=== PATIENT | male | born 1950 | race Caucasian/White ===

== ENCOUNTER → 2020-10-15 | Outpatient (CLI) | payer OTHER ==
--- NOTE | 2020-10-15 17:47 | CARD ---
MR#: [id number] Date of Study: 10/15/2020 Ordering Physician: DARIO RODRIGUEZ, Referring Physician: DARIO RODRIGUEZ, Tech: Ashlee [place] [facility] APPROVED REPORT EXAM: Two-dimensional and M-mode echocardiogram with Doppler and color Doppler. Other Information Quality : AverageHR: 71bpm INDICATION Hypertension/HCVD RISK FACTORS Hyperlipidemia 2D DIMENSIONS RVDd2.8 (2.9-3.5cm)Left Atrium(2D)3.4 (1.6-4.0cm) IVSd1.0 (0.7-1.1cm)Aortic Root(2D)3.4 (2.0-3.7cm) LVDd5.7 (3.9-5.9cm)LVOT Diameter2.1 (1.8-2.4cm) PWd1.1 (0.7-1.1cm)LVDs3.0 (2.5-4.0cm) FS (%) 47.0 %SV124.6 ml LVEF(%)67.7 (>50%) Aortic Valve AoV Peak Daquan.156.3cm/sAoV VTI34.0cm AO Peak GR.9.8mmHgLVOT Peak Daquan.122.4cm/s AO Mean GR.6mmHgAVA (VMAX)2.59cm2 Mitral Valve MV E Fwjgzthh31.4cm/sMV DECEL SGBL591qh MV A Eizhjiex30.3cm/sE/A Ratio1.1 Pulmonary Valve PV Peak Sqizbmbx764.9cm/s Tricuspid Valve TR P. Pmgqbueb759xh/sRAP MEOKZSFV6ozNi TR Peak Gr.93mzQqHABL29apZq Pulmonary Vein S1 Odifznfk21.2cm/sD2 Sabsznwk19.1cm/s PVa amsfmwzn121aevz LEFT VENTRICLE The left ventricle is normal size. There is borderline to mild concentric left ventricular hypertroph y. The left ventricular systolic function is normal and the ejection fraction is within normal range. The Ejection Fraction is 50-55%. There is normal LV segmental wall motion. Transmitral Doppler flow pattern is Grade II-pseudonormal filling dynamics. RIGHT VENTRICLE The right ventricle is normal size. There is normal right ventricular wall thickness. The right ventr icular systolic function is normal. ATRIA The left atrium size is normal. The right atrium size is normal. The interatrial septum is intact wit h no evidence for an atrial septal defect or patent foramen ovale as noted on 2-D or Doppler imaging. AORTIC VALVE The aortic valve is normal in structure and function. Doppler and Color Flow revealed no significant aortic regurgitation. There is no significant aortic valvular stenosis. Calculated aortic valve area is 3.0 cm2 with maximum pressure gradient of 10 mmHg and mean pressure gradient of 6 mmHg. MITRAL VALVE The mitral valve is normal in structure and function. There is no evidence of mitral valve prolapse. There is no mitral valve stenosis. Doppler and Color Flow revealed no mitral valve regurgitation note d. TRICUSPID VALVE The tricuspid valve is normal in structure and function. Doppler and Color Flow revealed trace tricus pid regurgitation with an estiamted PAP of 36 mmHg. There is no tricuspid valve stenosis. PULMONIC VALVE The pulmonic valve is not well visualized. Doppler and Color Flow revealed trace pulmonic valvular re gurgitation. There is no pulmonic valvular stenosis. GREAT VESSELS The aortic root is normal in size. The IVC is normal in size and collapses >50% with inspiration. PERICARDIAL EFFUSION There is no evidence of significant pericardial effusion. Critical Notification Critical Value: No <Conclusion> The left ventricular systolic function is normal and the ejection fraction is within normal range. Th e Ejection Fraction is 50-55%. There is normal LV segmental wall motion. Signed by : Saeed Greenwood, Electronically Approved : 10/15/2020 17:46:45
== END ==
LOC: ECHO 10:46
PROVIDERS: ATTEND Internal Medicine Cardiovascular Disease
DX: I11.9 Hypertensive heart disease without heart failure (principal)
CPT/HCPCS: 93306

== ENCOUNTER → 2021-03-29 | Outpatient (CLI) | payer OTHER ==
--- NOTE | 2021-03-29 13:28 | RAD ---
MR#: [id number] Date of Study: 03/29/2021 Ordering Physician: DARIO RODRIGUEZ, Referring Physician: DARIO RODRIGUEZ, Tech: Ashlee Krueger RDMS, RVT, RTR APPROVED REPORT Patient Location : OUT-PATIENT Indications Venous Insufficiency Findings Limited grayscale images of the bilateral saphenofemoral junctions are grossly unremarkable. The right great saphenous vein measures 3.5 mm and the left great saphenous vein measures 4 mm. The bilateral greater and lesser saphenous veins did not reveal any evidence of reflux. Critical Notification Critical Value: No <Conclusion> 1. No significant reflux in the bilateral greater and lesser saphenous veins Signed by : Saeed Greenwood, Electronically Approved : 03/29/2021 13:27:39
== END ==
LOC: US 12:16
PROVIDERS: ATTEND Internal Medicine Cardiovascular Disease
DX: I87.2 Venous insufficiency (chronic) (peripheral) (principal)
CPT/HCPCS: 93970